=== PATIENT | male | born 1950 | race Caucasian/White ===

== ENCOUNTER 2019-04-16 18:19 | Emergency (ER) | payer MEDICARE, BC ==
--- NOTE | 2019-04-16 18:53 | EDM.PDOC ---
ED HPI GENERAL MEDICAL PROBLEM - General Chief Complaint: Headache Stated Complaint: garbled speech Time Seen by Provider: 04/16/19 18:30 Source of Information: Reports: Patient, Family History Limitations: Reports: No Limitations - History of Present Illness INITIAL COMMENTS - FREE TEXT/NARRATIVE: This patient presents to the ED in the care of family members who noted he had an episode of slurred speech and difficulty walking while they were out ice fishing. The incident occurred about 20 minutes [employer] and since first noted, the patient's speech has cleared. He states he has had a headache for the past few days and did use ibuprofen for that earlier today. He is now complaining that he had some numbness and tingling in his right hand at the same time he was having speech difficulties but that has resolved some as well. He states that his PCP has been "watching" his BP but he has never been on a medication for it. He also states he has prediabetes. He denies nausea. Patient states he had a fall and hit his head about 2 weeks ago. After initally feeling a little unusual, he did not have any concerns and was not evaluated by a provider. Head Pain Score (Numeric/FACES): 4 - Related Data Allergies Allergy/AdvReac Type Severity Reaction Status Date / Time No Known Allergies Allergy Verified 04/16/19 19:10 Home Meds: Home Meds NK [No Known Home Meds] 04/16/19 [History] ED ROS GENERAL - Review of Systems Review Of Systems: See Below Constitutional: Denies: Fever, Diaphoresis HEENT: Reports: No Symptoms Respiratory: Reports: No Symptoms Cardiovascular: Denies: Chest Pain, Lightheadedness, Orthopnea, Palpitations GI/Abdominal: Reports: Nausea. Denies: Abdominal Pain, Diarrhea, Vomiting Musculoskeletal: Reports: No Symptoms Skin: Reports: No Symptoms Neurological: Reports: Headache ED EXAM, NEURO - Physical Exam Exam: See Below Exam Limited By: No Limitations General Appearance: Alert, WD/WN, No Apparent Distress Eye Exam: Bilateral Eye: PERRL Ears: Normal External Exam Nose: Normal Inspection Head Exam: Atraumatic, Normocephalic Neck: Normal Inspection, Non-Tender, Full Range of Motion Respiratory/Chest: No Respiratory Distress, Lungs Clear, Normal Breath Sounds, No Accessory Muscle Use, Chest Non-Tender Cardiovascular: Regular Rate, Rhythm GI/Abdominal: Normal Bowel Sounds, Non-Tender, No Distention Neurological: Alert, Normal Mood/Affect, Normal Dorsiflexion, Normal Plantar Flexion, Normal Gait, No Motor/Sensory Deficits, Oriented x 3, Other (following commands, no facial droop, intermittent unclear speech, hand grasps equal, foot movement equal; ) Back Exam: Normal Inspection Extremities: Normal Inspection Psychiatric: Normal Affect Skin Exam: Warm, Dry, Intact, Normal Color, No Rash Course - Vital Signs Last Recorded V/S: Last Vital Signs Temp 37.1 C 04/16/19 18:30 Pulse 74 04/16/19 19:55 Resp 18 04/16/19 19:50 BP 145/80 H 04/16/19 19:55 Pulse Ox 99 04/16/19 19:50 - Orders/Labs/Meds Orders: Active Orders 24 hr Category Date Time Status EKG Documentation Completion [RC] ASDIRECTED Care 04/16/19 19:31 Active Insert Urinary Catheter [OM.PC] Q24H Care 04/16/19 19:45 Ordered Urinary Catheter Assessment [RC] ASDIRECTED Care 04/16/19 19:31 Active Head wo Cont [CT] Stat Exams 04/16/19 18:47 Taken Labetalol [Normodyne] 100 mg Med 04/16/19 19:30 Active Sodium Chloride 0.9% [Normal Saline] 80 ml IV TITRATE Ondansetron [Zofran] Med 04/16/19 20:26 Ordered 4 mg IVPUSH Q4H PRN Sodium Chloride 0.9% [Saline Flush] Med 04/16/19 18:47 Active 10 ml FLUSH ASDIRECTED PRN Saline Lock Insert [OM.PC] Stat Oth 04/16/19 18:47 Ordered EKG 12 Lead [EK] Routine Ther 04/16/19 19:30 Ordered Medication Orders Labetalol HCl 100 mg/ Sodium (Chloride) 100 mls @ 30 mls/hr IV TITRATE KATHY; Protocol Sodium Chloride (Saline Flush) 10 ml FLUSH ASDIRECTED PRN PRN Reason: Keep Vein Open Last Admin: 04/16/19 19:50 Dose: 10 ml Labs: Laboratory Tests 04/16/19 04/16/19 04/16/19 Range/Units 19:00 19:00 19:00 WBC 6.1 (4.0-11.0) K/uL RBC 5.12 (4.50-6.50) M/uL Hgb 15.9 (13.0-18.0) g/dL Hct 45.7 (40.0-54.0) % MCV 89 (76-96) fL MCH 31.1 (27.0-32.0) pg MCHC 34.8 (31.0-35.0) g/dL RDW 13.6 (11.0-16.0) % Plt Count 149 L (150-400) K/uL MPV 10.0 (6.0-10.0) fL Neut % (Auto) 54.6 (45.0-70.0) % Lymph % (Auto) 31.9 (20.0-40.0) % Randolph % (Auto) 8.5 (3.0-10.0) % Eos % (Auto) 4.7 (1.0-5.0) % Baso % (Auto) 0.3 (0.0-0.5) % Neut # (Auto) 3.34 (2.00-7.50) K/uL Lymph # (Auto) 1.95 (1.50-4.00) K/uL Randolph # (Auto) 0.52 (0.20-0.80) K/uL Eos # (Auto) 0.29 (0.04-0.40) K/uL Baso # (Auto) 0.02 (0.02-0.10) K/uL PT 9.4 (9.0-11.5) sec INR 1.0 (1.0-3.5) Sodium 136 (136-145) mmol/L Potassium 3.7 (3.5-5.1) mmol/L Chloride 100 (98-107) mmol/L Carbon Dioxide 28.6 (21.0-32.0) mmol/L Anion Gap 11.1 (5.0-15.0) mmol/L BUN 14 (8-26) mg/dL Creatinine 1.19 (0.70-1.30) mg/dL Est Cr Clr Drug Dosing TNP Estimated GFR (MDRD) > 60 (>60) MLS/MIN BUN/Creatinine Ratio 11.8 (6-25) Glucose 133 H (74-100) mg/dL Calcium 8.8 (8.5-10.1) mg/dL Troponin I < 0.017 (0.000-0.060) ng/mL Urine Color Urine Appearance (CLEAR) Urine pH (5.0-8.0) Ur Specific [place] (1.003-1.030) Urine Protein (NEGATIVE) mg/dL Urine Glucose (UA) (NEGATIVE) mg/dL Urine Ketones (NEGATIVE) mg/dL Urine Occult Blood (NEGATIVE) Urine Nitrite (NEGATIVE) Urine Bilirubin (NEGATIVE) Urine Urobilinogen (0.2-1.0) E.U./dL Ur Leukocyte Esterase (NEGATIVE) Urine RBC /HPF Urine WBC /HPF Ur Squamous Epith Cells /HPF 04/16/19 Range/Units 20:10 WBC (4.0-11.0) K/uL RBC (4.50-6.50) M/uL Hgb (13.0-18.0) g/dL Hct (40.0-54.0) % MCV (76-96) fL MCH (27.0-32.0) pg MCHC (31.0-35.0) g/dL RDW (11.0-16.0) % Plt Count (150-400) K/uL MPV (6.0-10.0) fL Neut % (Auto) (45.0-70.0) % Lymph % (Auto) (20.0-40.0) % Randolph % (Auto) (3.0-10.0) % Eos % (Auto) (1.0-5.0) % Baso % (Auto) (0.0-0.5) % Neut # (Auto) (2.00-7.50) K/uL Lymph # (Auto) (1.50-4.00) K/uL Randolph # (Auto) (0.20-0.80) K/uL Eos # (Auto) (0.04-0.40) K/uL Baso # (Auto) (0.02-0.10) K/uL PT (9.0-11.5) sec INR (1.0-3.5) Sodium (136-145) mmol/L Potassium (3.5-5.1) mmol/L Chloride (98-107) mmol/L Carbon Dioxide (21.0-32.0) mmol/L Anion Gap (5.0-15.0) mmol/L BUN (8-26) mg/dL Creatinine (0.70-1.30) mg/dL Est Cr Clr Drug Dosing Estimated GFR (MDRD) (>60) MLS/MIN BUN/Creatinine Ratio (6-25) Glucose (74-100) mg/dL Calcium (8.5-10.1) mg/dL Troponin I (0.000-0.060) ng/mL Urine Color Yellow Urine Appearance Clear (CLEAR) Urine pH 5.0 (5.0-8.0) Ur Specific [place] 1.020 (1.003-1.030) Urine Protein Negative (NEGATIVE) mg/dL Urine Glucose (UA) Negative (NEGATIVE) mg/dL Urine Ketones Negative (NEGATIVE) mg/dL Urine Occult Blood Trace-lysed H (NEGATIVE) Urine Nitrite Negative (NEGATIVE) Urine Bilirubin Negative (NEGATIVE) Urine Urobilinogen 0.2 (0.2-1.0) E.U./dL Ur Leukocyte Esterase Negative (NEGATIVE) Urine RBC Not seen /HPF Urine WBC 0-5 H /HPF Ur Squamous Epith Cells Occasional /HPF Meds: Medications Generic Name Dose Route Start Last Admin Trade Name Freq PRN Reason Stop Dose Admin Labetalol HCl 100 mg/ Sodium 100 mls @ 30 mls/hr 04/16/19 19:30 Chloride IV TITRATE KATHY Protocol 0.5 MG/MIN Sodium Chloride 10 ml 04/16/19 18:47 04/16/19 19:50 Saline Flush FLUSH 10 ml ASDIRECTED PRN Administration Keep Vein Open Discontinued Medications Generic Name Dose Route Start Last Admin Trade Name Freq PRN Reason Stop Dose Admin Labetalol HCl 20 mg 04/16/19 19:21 Normodyne IVPUSH 04/16/19 19:22 ONETIME ONE Protocol Labetalol HCl 10 mg 04/16/19 19:31 04/16/19 19:45 Normodyne IVPUSH 04/16/19 19:32 10 mg ONETIME ONE Administration Protocol - Re-Assessments/Exams Free Text/Narrative Re-Assessment/Exam: 04/16/19 19:48 This patient presented to the ED with changes in speech and numbness in left hand. CT evaluation revealed a 9 mm subdural hematoma with no ischemic findings and without a midline shift. The patient sustained a fall 2 weeks ago and it is possible that this bleed occurred at that time. The patient is visiting the area from [place], [place] so I contacted Dr. Colton Shin at [facility] to discuss the management and transfer of this patient. Dr. Shin did agree to accept this patient in transfer. He recommended lowering the patient's blood pressure with a dose of labetalol and then initiating a nicardipine drip. This facility does not stock nicardipine so orders given for a labetalol drip after he was given 10 mg. Arrangements were made for this patient's transfer to [facility] ED via [facility] fixed wing. Free Text/Narrative Re-Assessment/Exam: 04/16/19 20:30 BP 160s/80-90s after labetalol given; drip help. Prepped for air transfer. Patient continued to have intermittent difficulties with speech and numbness and tingling in his right hand. NPO for solids since 1400, has had some clear liquids. Departure - Departure Time of Disposition: 20:45 Disposition: DC/Tfer to Other 70 Condition: Fair Clinical Impression: Subdural hematoma - Discharge Information Forms: ED Department Discharge Sepsis Event Note - Focused Exam Vital Signs: Vital Signs Temp Pulse Resp BP Pulse Ox 04/16/19 19:55 74 145/80 H 04/16/19 19:50 18 161/87 H 99 04/16/19 18:55 80 16 160/89 H 04/16/19 18:30 37.1 C 81 18 187/102 H 98 Date Exam was Performed: 04/16/19 Time Exam was Performed: 20:27 - My Orders Last 24 Hours: My Active Orders 04/16/19 18:47 Head wo Cont [CT] Stat Sodium Chloride 0.9% [Saline Flush] 10 ml FLUSH ASDIRECTED PRN Saline Lock Insert [OM.PC] Stat 04/16/19 19:30 Labetalol [Normodyne] 100 mg Sodium Chloride 0.9% [Normal Saline] 80 ml IV TITRATE EKG 12 Lead [EK] Routine 04/16/19 19:31 EKG Documentation Completion [RC] ASDIRECTED Urinary Catheter Assessment [RC] ASDIRECTED 04/16/19 19:45 Insert Urinary Catheter [OM.PC] Q24H 04/16/19 20:26 Ondansetron [Zofran] 4 mg IVPUSH Q4H PRN - Assessment/Plan Last 24 Hours: My Active Orders 04/16/19 18:47 Head wo Cont [CT] Stat Sodium Chloride 0.9% [Saline Flush] 10 ml FLUSH ASDIRECTED PRN Saline Lock Insert [OM.PC] Stat 04/16/19 19:30 Labetalol [Normodyne] 100 mg Sodium Chloride 0.9% [Normal Saline] 80 ml IV TITRATE EKG 12 Lead [EK] Routine 04/16/19 19:31 EKG Documentation Completion [RC] ASDIRECTED Urinary Catheter Assessment [RC] ASDIRECTED 04/16/19 19:45 Insert Urinary Catheter [OM.PC] Q24H 04/16/19 20:26 Ondansetron [Zofran] 4 mg IVPUSH Q4H PRN
[2019-04-16] MEDS ORDERED: Labetalol 100 MG/20 ML MDV IVPUSH ONE (19:21)
[2019-04-16] MEDS ORDERED: Labetalol 100 MG in Sodium Chloride 0.9% 80 ML IV SCH (19:30)
[2019-04-16] MEDS: Labetalol 100 MG/20 ML MDV IVPUSH ONE (19:45)
[2019-04-16] MEDS: Sodium Chloride 0.9% 10 ML Syringe FLUSH PRN (19:50)
[2019-04-16] MEDS: Ondansetron 4 MG/2 ML SDV IVPUSH PRN (20:30)
--- NOTE | 2019-04-19 12:40 | CT ---
Date of Service: 04/16/19 Clinical Data: headache, slurred speech UNENHANCED BRAIN CT: 04/16/19 Multislice acquisition through the brain without IV contrast was performed. No priors. There is a crescentic-shaped hyperdense, heterogeneous extra-axial collection in the left frontoparietal region consistent in appearance with a subdural hematoma. It measures 9 mm in maximal depth. There is mass effect associated with it with effacement of the sulci in the left frontoparietal region. No other intracranial abnormalities. No fractures. IMPRESSION: Left subdural hematoma. The patient's physician was notified of the findings by telephone and my [facility] preliminary radiology report. [id number] MTDD
== END 2019-04-16 20:48 | disposition other institution (70) ==
LOC: LB.ED 18:19
DX: S06.5X9A Traumatic subdural hemorrhage with loss of consciousness of unspecified duration, initial encounter (principal); W19.XXXA Unspecified fall, initial encounter
CPT/HCPCS: 36415; 51702; 70450; 80048; 81001; 84484; 85025; 85610; 93005; 96374; 96375; 99285; A0425; A0429; J2405; J3490